=== PATIENT | male | born 1980 | race Caucasian/White ===

== ENCOUNTER 2022-01-20 00:16 | Observation (INO) | payer BC, SELFPAY ==
[2022-01-20] VITALS (11 sets, daily range): BP systolic 128–151; BP diastolic 90–109; PULSE 65–95; RESP 13–24; TEMP 36.3–36.9; O2SAT 94–100; BMI 27.9
--- NOTE | ~2022-01-20 | CT_ITS ---
EXAMINATION: CT thoracic spine wo con DATE: 01/20/2022 10:45 INDICATION: Mid back pain TECHNIQUE: Computed tomography (CT) of the thoracic spine was performed without intravenous contrast. Automated exposure control and iterative reconstruction technique were employed. Exam dose: 1119.97 mGy-cm total exam DLP. COMPARISON: None FINDINGS: No fracture or dislocation or bone destruction.. IMPRESSION: No significant abnormality of the thoracic spine Reviewed, dictated and finalized at [facility]. Reviewed, dictated and finalized at [facility].
--- NOTE | ~2022-01-20 | CT_ITS ---
EXAMINATION: CT cervical spine wo con DATE: 01/20/2022 10:44 INDICATION: Mid neck pain radiating to the left TECHNIQUE: Computed tomography (CT) of the cervical spine was performed without intravenous contrast. Automated exposure control and iterative reconstruction technique were employed. Exam dose: 428.36 mGy-cm total exam DLP. COMPARISON: None FINDINGS: There is straightening of the cervical spine which may be due to positioning or muscle spas m. There is mild to moderate degenerative disc disease C5-6 and moderate degenerative disc disease at C6 -7. No fracture or dislocation or locked facet or prevertebral soft tissue swelling.. IMPRESSION: Straightening of cervical spine Mild degenerative disc disease at C5-6 and moderate degenerative disc disease at C6-7 Reviewed, dictated and finalized at [facility]. Reviewed, dictated and finalized at [facility]. IMPRESSION: Straightening of cervical spine Mild degenerative disc disease at C5-6 and moderate degenerative disc disease a t C6-7
--- NOTE | ~2022-01-20 | CT_ITS ---
EXAMINATION: CTA chest abdomen pelvis DATE: 01/20/2022 02:51 INDICATION: Left chest, arm, back pain TECHNIQUE: Computed tomography (CT) of the chest, abdomen and pelvis was performed with 100 CC Omnipa que 300 intravenous contrast. Automated exposure control and iterative reconstruction technique were employed. Exam dose: 842.07 mGy-cm total exam DLP. COMPARISON: None FINDINGS: The lungs are clear of infiltrate or consolidation or pulmonary mass lesion. No thoracic aortic aneurysm or dissection. No evidence of pulmonary embolism. No hilar or mediastinal mass lesion or lymphadenopathy. Normal heart size. No pericardial or pleural effusion. The liver, gallbladder, bile ducts, spleen, pancreas, pancreatic duct, and adrenal glands and kidneys appear normal. There is mild atherosclerotic calcification of the infrarenal abdominal aorta. No abdominal aortic an eurysm or dissection. No intraperitoneal or retroperitoneal or pelvic mass lesion or adenopathy or as cites. Scattered colonic diverticula; no CT evidence of diverticulitis. No evidence of appendicitis. No agustin l obstruction or intraperitoneal free air. Very small fat-containing umbilical hernia. Included skeletal structures are unremarkable other than some degenerative disc disease in the lower cervical spine.. IMPRESSION: No thoracic or abdominal aortic aneurysm or dissection No evidence of pulmonary embolism Mild colonic diverticulosis Reviewed, dictated and finalized at [facility] Reviewed, dictated and finalized at [facility].
--- NOTE | 2022-01-20 01:37 | ED.BACK ---
HPI - Back Pain/Injury General Chief Complaint: Back Pain/Injury <Lizzie Ramsey PA-C - Last Filed: 01/20/22 04:50> Stated Complaint: my neck, my back, my shoulder <CAMILA Baron Last Filed: 01/20/22 04:50> Time Seen by Provider: 01/20/22 01:18 <CAMILA Baron Last Filed: 01/20/22 04:50> Source: patient <CAMILA Baron Last Filed: 01/20/22 04:50> Mode of arrival: ambulatory <CAMILA Baron Last Filed: 01/20/22 04:50> Limitations: no limitations <CAMILA Baron Last Filed: 01/20/22 04:50> History of Present Illness HPI Narrative: Patient is a 41-year-old male who presents the ED with report of neck, arm/shoulder, back pain. Patient reports he developed pain afternoon. The pain has gradually worsened since then and has become constant today. He is currently driving from [place] to [place] and stopped here as the pain became so severe he felt he needed to be evaluated at the hospital. Patient reports having pain in his left-sided neck, left and mid upper back pain, left upper arm pain and L sided chest pain. He has tried taking Tylenol and ibuprofen without relief. He states the pain is deeper in his body and is not so much reproducible from the outside. He also reports having difficulty breathing due to the pain. Denies any recent fever, chills, cough, cold symptoms, abdominal pain, BLE edema or pain. Upon further examination, patient reports having a rash involving his left-sided neck, left-sided upper chest, left shoulder, left arm, left scapular region. This is the patient's reported area of pain. He states he just noticed this rash today, but he did have a healed area with redness and swelling to his left inner upper arm 3 weeks ago. This did occur approximately 1 week after he was bit by a dog over his L fifth MCP joint. He was evaluated in urgent care at that time and placed on clindamycin, which he finished. He states the redness did resolve until today. Patient has remote history of IVDU, last used in 2012. <Lizzie Ramsey PA-C - Last Filed: 01/20/22 04:50> Related Data Allergies/Adverse Reactions: Allergies Allergy/AdvReac Type Severity Reaction Status Date / Time No Known Allergies Allergy Verified 01/20/22 00:23 <Lizzie Ramsey PA-C - Last Filed: 01/20/22 04:50> Review of Systems Review of Systems: CONSTITUTIONAL: Denies fever, chills. ENT: Denies rhinorrhea, congestion, sore throat. CARDIOVASCULAR: Reports L sided CP. Denies BLE edema. RESPIRATORY: Reports SOB. Denies cough. GASTROINTESTINAL: Denies abdominal pain, nausea, vomiting. MUSCULOSKELETAL: Reports L shoulder/neck/upper back pain, L arm pain. Denies BLE pain. SKIN: Reports rash to L neck/chest/arm/upper back. NEUROLOGIC: Denies headache, numbness, or weakness. <Lizzie Ramsey PA-C - Last Filed: 01/20/22 04:50> All systems reviewed & are unremarkable except as noted in HPI and below <Lizzie Ramsey PA-C - Last Filed: 01/20/22 04:50> [facility] Past Medical History Medical History: Medical History (Updated 01/20/22 @ 06:54 by Esperanza Palma MD) No significant past medical history <Lizzie Ramsey PA-C - Last Filed: 01/20/22 04:50> Surgical History Surgical History: Surgical History (Updated 01/20/22 @ 02:35 by Lizzie Ramsey PA-C) No pertinent past surgical history <Lizzie Ramsey PA-C - Last Filed: 01/20/22 04:50> Social History Social History: Social History (Updated 01/20/22 @ 04:48 by Lizzie Ramsey PA-C) Smoking status: Current every day smoker Substance use: current Substance use type: marijuana Last use: IVDU - 2012 <Lizzie Ramsey PA-C - Last Filed: 01/20/22 04:50> Exam Narrative: GENERAL: Mildly ill appearing, diaphoretic, standing uncomfortably, in mild acute distress. HEAD: Normocephalic, atraumatic. NECK: Supple. No adenopathy, no masses. RESPIRATORY: Airway patent, respirations no
--- NOTE | 2022-01-20 01:49 | ECG_ITS ---
Measurements Intervals [place] Rate: 87 P: 61 OH: 190 QRS: 2 QRSD: 129 T: 18 QT: 391 QTc: 473 Interpretive Statements SINUS RHYTHM POSSIBLE LEFT ATRIAL ENLARGEMENT INCOMPLETE RIGHT BUNDLE BRANCH BLOCK BASELINE ARTIFACT- I, II, III, AVR, AVL, AVF BORDERLINE ECG Electronically Signed On 01-20-2022 7:48:40 CDT by [place] Abdi D.O.
[2022-01-20 02:14] LABS: Basophils Percent Auto 0.3 % (0.2-1.2); Eosinophils Absolute Auto 0.1 K/mm3 (0-0.3); Eosinophils Percent Auto 0.7 % (0-4.4); Hematocrit 41.9 % (42.0-52.0); Hemoglobin 13.6 g/dL (14.0-18.0); Immature Granulocyte Absolute 0.03 K/mm3 (0.00-0.031); Immature Granulocyte Percent A 0.2 % (0-0.5); Lymphocytes Absolute Auto 5.29 K/mm3 (0.9-3.2); Lymphocytes Percent Auto 42.7 % (18.3-44.2); Mean Corpuscular HGB Conc 32.5 g/dl (32-36); Mean Corpuscular Hemoglobin 29.2 pg (26-34); Mean Corpuscular Volume 90.1 fl (80-100); Mean Platelet Volume 9.3 fl (7.4-10.4); Monocytes Absolute Auto 0.9 K/mm3 (0.1-0.6); Monocytes Percent Auto 7.1 % (2.6-8.5); Neutrophils Absolute Auto 6.1 K/mm3 (1.3-6.7); Platelet Count Result 295 k/mm3 (150-375); Red Blood Count 4.65 M/mm3 (4.6-6.20); Red Cell Distribution Width 14.6 % (11.5-14.5); White Blood Count 12.4 K/mm3 (4.5-10.0)
[2022-01-20] MEDS: MORPHINE SULFATE (*CRX) 4 MG/ML INJ IV PUSH ×2 (02:16→08:09)
[2022-01-20] MEDS: ONDANSETRON INJ 4 MG/2 ML VIAL IV PUSH (02:16)
[2022-01-20 02:23] LABS: Alanine Aminotransferase 32 U/L (6-50); Albumin Level 4.2 g/dL (3.5-5.1); Alkaline Phosphatase 91 U/L (38-126); Anion Gap 7 mmol/L (8-16); Aspartate Amino Transferase 25 U/L (17-59); Bilirubin,Total 0.3 mg/dL (0.2-1.3); Blood Urea Nitrogen 18 mg/dL (9-20); Calcium 9.1 mg/dL (8.4-10.2); Carbon Dioxide 29 mmol/L (22-30); Chloride 103 mmol/L (98-107); Estimated CRCL calculation 84 ml/min; Estimated Glomerular Filt Rate > 60; Glucose 98 mg/dL (65-110); Potassium 3.1 mmol/L (3.4-5.0); Sodium 139 mmol/L (137-145)
[2022-01-20 02:25] LABS: Atypical Lymphocytes Present; Platelet Estimate Adequate (Adequate)
[2022-01-20 02:27] LABS: Prothrombin Time 13.2 Seconds (11.1-14.7)
[2022-01-20 02:28] LABS: Partial Thromboplastin Time 26.7 SECONDS (22.3-36.8)
[2022-01-20 02:35] LABS: Troponin I < 0.012 ng/mL (0.000-0.034)
[2022-01-20] MEDS: POTASSIUM CHLORIDE 20 MEQ TABLET 40 MEQ PO (03:29)
[2022-01-20] MEDS: KETOROLAC 30 MG/ML VIAL (*BKC) IV PUSH (03:29)
[2022-01-20] MEDS: HYDROmorphone HCL INJ (*CRX) 1 MG/ML SYR IV PUSH (04:22)
[2022-01-20 05:00] LABS: Lactic Acid Reflex 0.7 mmol/L (0.7-2.0)
--- NOTE | 2022-01-20 07:05 | PC.NURSE ---
Nurse found pt wondering outside room. states I want to g outside to get my stuff. RN informed pt to stay in room. Pt verablized understanding.
--- NOTE | 2022-01-20 07:06 | PC.NURSE ---
Pt once again unhooked himiself from monitor after education to not remove monitoring. Pt found pacing around room not attached to monitor.
[2022-01-20 08:05] LABS: SARS-CoV-2 RNA PCR Negative
--- NOTE | 2022-01-20 08:30 | ADMGEN ---
This patient, Saurabh Altman, was admitted to 2 Medical Room 240-. Patient/family oriented to hospital policies and general routines including ID bracelet, bed and alarms, visiting hours, pain management, procedures, bathroom and other care routines, personal items, smoking policy, room service/diet, and visiting hours. Information on how to activate the Rapid Response Team has been discussed. Patient/Family are encouraged to report perceived risks to care and to ask questions if they do not understand what they are told or what they should do.
--- NOTE | 2022-01-20 09:11 | PC.NURSE ---
Patient care report called to ARSH Gunderson. All questions answered at this time.
[2022-01-20 11:22] LABS: Amphetamine Screen Urine Negative (Negative); Barbiturate Screen Urine Negative (Negative); Benzodiazepines Screen Urine Negative (Negative); Cannabinoid Screen Urine Positive (Negative); Cocaine Screen Urine Negative (Negative); Methadone Screen Urine Negative (Negative); Opiate Screen Urine Positive (Negative); Phencyclidine Screen Urine Negative (Negative)
--- NOTE | 2022-01-20 12:17 | PM.IMHP ---
H&P: HPI History of Present Illness Date/Time: 01/20/22 12:17 Chief Complaint: Patient is a 41-year-old male who presents the ED with report of neck, arm/shoulder, back pain.? Patient reports he developed pain afternoon.? The pain has gradually worsened since then and has become constant today.? He is currently driving from [place] to [place] and stopped here as the pain became so severe he felt he needed to be evaluated at the hospital.? Patient reports having pain in his left-sided neck, left and mid upper back pain, left upper arm pain and L sided chest pain.? He has tried taking Tylenol and ibuprofen without relief.? He states the pain is deeper in his body and is not so much reproducible from the outside.? He also reports having difficulty breathing due to the pain.? Denies any recent fever, chills, cough, cold symptoms, abdominal pain, BLE edema or pain. Upon further examination, patient reports having a rash involving his left-sided neck, left-sided upper chest, left shoulder, left arm, left scapular region.? This is the patient's reported area of pain.? He states he just noticed this rash today, but he did have a healed area with redness and swelling to his left inner upper arm 3 weeks ago.? This did occur approximately 1 week after he was bit by a dog over his L fifth MCP joint.? He was evaluated in urgent care at that time and placed on clindamycin, which he finished.? He states the redness did resolve until today. When I saw the patient today I did not appreciate any rash. He did show me a picture that he had a rash back approximately 3 weeks ago on his left inner arm. Left hand looked clean as well without any dog bite. [facility] Past Medical History Medical History (Updated 01/20/22 @ 06:54 by Esperanza Palma MD) No significant past medical history Surgical History Surgical History (Updated 01/20/22 @ 02:35 by Lizzie Ramsey PA-C) No pertinent past surgical history Social History Social History (Updated 01/20/22 @ 04:48 by Lizzie Ramsey PA-C) Smoking status: Current every day smoker Substance use: current Substance use type: marijuana Last use: IV - 2012 Meds Home Medications and Allergies Allergies Allergy/AdvReac Type Severity Reaction Status Date / Time No Known Allergies Allergy Verified 01/20/22 00:23 Vital Signs Vital Signs - 24 hr 01/20/22 00:20 01/20/22 02:56 01/20/22 03:00 Temperature 98.4 F Pulse Rate 95 80 86 Respiratory Rate 16 14 16 Blood Pressure 148/108 H 132/92 H Pulse Oximetry 96 100 99 Oxygen Delivery Room Air 01/20/22 03:01 01/20/22 03:02 01/20/22 03:51 Temperature Pulse Rate 83 88 91 Respiratory Rate 13 16 23 H Blood Pressure 128/90 Pulse Oximetry 96 100 99 Oxygen Delivery 01/20/22 04:00 Temperature Pulse Rate 95 Respiratory Rate 24 H Blood Pressure Pulse Oximetry 96 Oxygen Delivery Exam Narrative: General: alert and oriented Psych: appropriate mood nad affect Eyes: PERRLA Neck: Trachea midline, no new lesions Skin: no changes Lungs: CTA Cardiac: Normal S1,S2, no MGR ABD: soft, nd, nt, nbs Ext: no new lesions, no cce Vasc: Pulses intact H&P: Results Labs Labs: Short CBC 01/20/22 Range/Units 02:06 WBC 12.4 H (4.5-10.0) K/mm3 Hgb 13.6 L (14.0-18.0) g/dL Hct 41.9 L (42.0-52.0) % Plt Count 295 (150-375) k/mm3 BMP 01/20/22 02:06 Sodium 139 Potassium 3.1 L Chloride 103 Carbon Dioxide 29 BUN 18 Creatinine 1.10 Glucose 98 Calcium 9.1 Cardiac Enzymes 01/20/22 Range/Units 02:06 Troponin I < 0.012 (0.000-0.034) ng/mL Liver Function 01/20/22 Range/Units 02:06 Total Bilirubin 0.3 (0.2-1.3) mg/dL AST 25 (17-59) U/L ALT 32 (6-50) U/L Alkaline Phosphatase 91 (38-126) U/L Albumin 4.2 (3.5-5.1) g/dL Assessment and Plan Assessment and plan (1) Back pain: Code(s): M54.9 - Dorsalgia, unspecified Status: Acute
[2022-01-20] MEDS: oxyCODONE/ACETAMINOPHEN (*CRX) 5-325 MG TABLET 1 TABLET PO ×2 (12:33→20:06)
[2022-01-20] MEDS: methocarbamoL 750 MG TABLET PO (20:06)
[2022-01-20] MEDS: hydrOXYzine HCL 25 MG TABLET 50 MG PO (23:25)
[2022-01-20] MEDS: TEMAZEPAM (*CRX) 15 MG CAPSULE PO (23:25)
[2022-01-21] VITALS: PULSE 66
[2022-01-21] MEDS: oxyCODONE/ACETAMINOPHEN (*CRX) 5-325 MG TABLET 1 TABLET PO ×2 (01:23→05:37)
[2022-01-21 04:00] VITALS: PULSE 83
[2022-01-21 05:45] LABS: Hematocrit 42.1 % (42.0-52.0); Hemoglobin 13.6 g/dL (14.0-18.0); Mean Corpuscular HGB Conc 32.3 g/dl (32-36); Mean Corpuscular Hemoglobin 29.5 pg (26-34); Mean Corpuscular Volume 91.3 fl (80-100); Mean Platelet Volume 9.9 fl (7.4-10.4); Platelet Count Result 244 k/mm3 (150-375); Red Blood Count 4.61 M/mm3 (4.6-6.20); Red Cell Distribution Width 14.4 % (11.5-14.5); White Blood Count 10.1 K/mm3 (4.5-10.0)
[2022-01-21 05:56] LABS: Anion Gap 5 mmol/L (8-16); Blood Urea Nitrogen 13 mg/dL (9-20); Calcium 9.1 mg/dL (8.4-10.2); Carbon Dioxide 30 mmol/L (22-30); Chloride 102 mmol/L (98-107); Estimated CRCL calculation 127 ml/min; Estimated Glomerular Filt Rate > 60; Glucose 123 mg/dL (65-110); Potassium 3.8 mmol/L (3.4-5.0); Sodium 137 mmol/L (137-145)
[2022-01-21 07:12] VITALS: BP 162/100; PULSE 75; RESP 18; TEMP 36.5; O2SAT 96
[2022-01-21 08:00] VITALS: PULSE 78
--- NOTE | 2022-01-21 09:33 | P.DS_ITS ---
DS: Admitting Diagnosis Discharge Date 01/21/22 Admitting Diagnosis neck pain w radiculopathy DS: Discharge Diagnosis Discharge Diagnosis (1) Back pain: Code(s): M54.9 - Dorsalgia, unspecified Status: Acute Assessment and Plan: Neck pain with left-sided radiculopathy. ct noted fu pain management as outpatient (2) Rash: Code(s): R21 - Rash and other nonspecific skin eruption Status: Acute Assessment and Plan: No appreciable rash DS: Summary Hospital Course Hospital Course: admitted for neck pain w radiation ct negative for abscess but does show degeneration and disc bulging recommended outpatient fu with pcp and pain management medication prescribed on dc Time Spent with Patient Time attestation: Total time spent providing and/or coordinating discharge services: Exam Narrative: General: alert and oriented Psych: appropriate mood nad affect Eyes: PERRLA Neck: Trachea midline, no new lesions Skin: no changes Lungs: CTA Cardiac: Normal S1,S2, no MGR ABD: soft, nd, nt, nbs Ext: no new lesions, no cce Vasc: Pulses intact DS: Data Data Completed and Pending Labs on day of discharge: Labs from last 24 hours 01/21/22 01/21/22 01/20/22 05:05 05:05 10:55 WBC 10.1 H RBC 4.61 Hgb 13.6 L Hct 42.1 MCV 91.3 MCH 29.5 MCHC 32.3 RDW 14.4 Plt Count 244 MPV 9.9 Sodium 137 Potassium 3.8 Chloride 102 Carbon Dioxide 30 Anion Gap 5 L BUN 13 D Creatinine 0.70 Estim Creat Clear Calc 127 Estimated GFR > 60 Glucose 123 H Calcium 9.1 Urine Opiates Screen Positive A Urine Methadone Screen Negative Ur Barbiturates Screen Negative Ur Phencyclidine Scrn Negative Ur Amphetamine Screen Negative U Benzodiazepines Scrn Negative Urine Cocaine Screen Negative U Cannabinoids Screen Positive A Preliminary micro results at discharge 01/20/22 04:39 Blood Culture - Preliminary Blood 01/20/22 04:39 Blood Culture - Preliminary Blood Discharge Plan Discharge Attending physician on discharge: Geronimo Flores Consulting providers: Kayleen Wright Discharging Clinician: Geronimo Flores Patient Disposition: Home, Self-Care Activity: as tolerated Diet: as tolerated Patient Instructions: Antibiotic Form, How to Stop Smoking (GEN) Stand Alone Forms: General Discharge Information Follow-up/Referrals: Kayleen Wright DO [Physician] - Discharge Medications: New oxycodone-acetaminophen 5-325 mg Tablet 1 tablet PO Q4H PRN (Reason: Pain Rated 7-10) 7 Days Qty: 42 0RF methocarbamol 750 mg Tablet 750 mg PO QID 7 Days Qty: 28 0RF ibuprofen 800 mg tablet 800 mg PO TID 7 Days Qty: 21 0RF Date of admission: 01/20/22 06:13 Primary Care Provider: PHYSICIAN,[employer]PERATOR [employer] Admitting Provider: Debra Lyles V. Attending physician on admission: Debra Lyles V. Condition: Serious
== END 2022-01-21 10:05 | disposition home or self-care (01) ==
LOC: ANHED 06:54 → ANH2MED 10:26
PROVIDERS: Physician Assistant; Admitting Provider Internal Medicine; Emergency Provider Emergency Medicine; Visit Provider Chiropractor
DX: M54.9 Dorsalgia, unspecified (principal); R21 Rash and other nonspecific skin eruption; F17.210 Nicotine dependence, cigarettes, uncomplicated; M54.2 Cervicalgia; M54.10 Radiculopathy, site unspecified; Z20.822 Contact with and (suspected) exposure to COVID-19
CPT/HCPCS: 36415; 71275; 72125; 72128; 74174; 80048; 80053; 80307; 83605; 84484; 85025; 85027; 85610; 85730; 86850; 86900; 86901; 87040; 93005; 96374; 96375; 96376; 99285; A9270; C9803; G0378; J1170; J1885; J2270; J2405; Q9967; U0003; U0005